=== PATIENT | female | born 1990 | race African-American/Black ===

== ENCOUNTER 2019-05-21 09:12 | Emergency (ER) | payer OTHER, SELFPAY ==
[2019-05-21 09:15] VITALS: BP 151/98; PULSE 100; RESP 18; TEMP 36.3; O2SAT 100
--- NOTE | 2019-05-21 09:59 | ED.URI ---
HPI - URI/Sore Throat General Chief Complaint: Upper Respiratory Infection <Antwon Vasquez PA-C - Last Filed: 05/21/19 10:15> Stated Complaint: fever, cough <KIMBERLY Huerta Last Filed: 05/21/19 10:15> Time Seen by Provider: 05/21/19 09:20 <Antwon Vasquez PA-C - Last Filed: 05/21/19 10:15> Source: patient <KIMBERLY Huerta Last Filed: 05/21/19 10:15> Mode of arrival: ambulatory <KIMBERLY Huerta Last Filed: 05/21/19 10:15> Limitations: no limitations <KIMBERLY Huerta Last Filed: 05/21/19 10:15> History of Present Illness HPI Narrative: Patient presents with chief complaints of body aches, fever, nasal congestion, rhinorrhea, dry cough that began last night. Patient states she did receive a flu shot this season. Patient reports that her cough is dry and nonproductive. Patient denies wheezing or shortness of breath. Patient denies any nausea, vomiting, diarrhea or any other symptoms. Patient has a predisposition for seizures. Patient denies any daily home medications. Patient denies recent international travel or cruises. Patient denies known exposure to person with coronavirus. <KIMBERLY Huerta Last Filed: 05/21/19 10:15> Related Data Home Medications: Home Medications Medication Instructions Recorded Confirmed multivitamin tablet 05/21/19 <KIMBERLY Huerta Last Filed: 05/21/19 10:15> Allergies/Adverse Reactions: Allergies Allergy/AdvReac Type Severity Reaction Status Date / Time banana AdvReac Unknown Verified 05/21/19 09:30 cinnamon AdvReac Unknown Verified 05/21/19 09:30 <KIMBERLY Huerta Last Filed: 05/21/19 10:15> Review of Systems Review of Systems: Narrative: CONSTITUTIONAL: Denies fever, chills, or sweats. EYES: Denies visual changes, redness, or discharge. ENT: Reports rhinorrhea, congestion, sore throat, denies otalgia. CARDIOVASCULAR: Denies chest pain, palpitations, or edema. RESPIRATORY: Reports cough denies dyspnea. GASTROINTESTINAL: Denies abdominal pain, nausea, vomiting, or diarrhea. GENITOURINARY: Denies dysuria or hematuria. SKIN: Denies rash or itching. MUSCULOSKELETAL: Denies back pain, joint pain, or myalgia. NEUROLOGIC: Denies headache, numbness, dizziness, or weakness. PSYCHIATRIC: Denies anxiety or depression. <Antwon Vasquez PA-C - Last Filed: 05/21/19 10:15> Exam Narrative: Exam Narrative: GENERAL: Well-appearing, well-nourished, and in no acute distress. HEAD: Normocephalic, atraumatic. EYES: PERRLA and EOMI. ENT: Nares congested, clear rhinorrhea or epistaxis. Mucous membranes moist. Oropharynx without tonsillar hypertrophy exudate or other lesions. Bilateral TMs pearly salcedo nonbulging NECK: Supple. No adenopathy or masses. No carotid bruits or JVD CHEST: Clear to auscultation. No respiratory distress. No wheezes rales or rhonchi HEART: Regular rate and rhythm. EXTREMITIES: Normal range of motion. No edema. SKIN: Warm, dry, no rash. NEURO: No focal deficits. Alert and oriented x3. PSYCH: Normal mood and affect. <Antwon Vasquez PA-C - Last Filed: 05/21/19 10:15> Course Vital Signs Vital signs: Vital Signs Temperature 97.4 F L 05/21/19 09:15 Pulse Rate 100 05/21/19 09:15 Respiratory Rate 18 05/21/19 09:15 Blood Pressure 151/98 H 05/21/19 09:15 Pulse Oximetry 100 05/21/19 09:15 Temperature 97.4 F L 05/21/19 09:15 Pulse Rate 100 05/21/19 09:15 Respiratory Rate 18 05/21/19 09:15 Blood Pressure 151/98 H 05/21/19 09:15 Pulse Oximetry 100 05/21/19 09:15 <Antwon Vasquez PA-C - Last Filed: 05/21/19 10:15> Vital Signs Temperature 97.4 F L 05/21/19 09:15 Pulse Rate 100 05/21/19 09:15 Respiratory Rate 18 05/21/19 09:15 Blood Pressure 151/98 H 05/21/19 09:15 Pulse Oximetry 100 05/21/19 09:15 Temperature 97.4 F L 05/21/19 09:15 Pulse Rate 100 05/21/19 09:15 Respiratory Rate 18 05/21/19 09:15
== END 2019-05-21 10:45 | disposition home or self-care (01) ==
PROVIDERS: Emergency Provider General Practice; PCP Internal Medicine Gastroenterology
DX: J11.1 Influenza due to unidentified influenza virus with other respiratory manifestations (principal)
CPT/HCPCS: 87804; 99283